=== PATIENT | male | born 1990 | race Caucasian/White ===

== ENCOUNTER 2016-09-26 17:01 | Emergency (ER) | payer OTHER ==
[2016-09-26 17:08] VITALS: BP 137/78; PULSE 70; RESP 18; TEMP 97.6
[2016-09-26] MEDS ORDERED: SODIUM CHLORIDE 0.9% 1,000 ML IV STA (17:14)
[2016-09-26] MEDS ORDERED: ONDANSETRON 4 MG/2 ML VIAL IVP STA (17:14)
[2016-09-26] MEDS ORDERED: KETOROLAC 30 MG/ML 1 ML VIAL IVP STA (17:14)
--- NOTE | 2016-09-26 17:23 | ED ---
Abdominal Pain HPI - General Chief Complaint: Abdominal Pain Stated Complaint: Abd/Side Pain Time Seen by Provider: 09/26/16 17:13 Source: patient, RN notes reviewed, old records reviewed Mode of arrival: ambulatory Limitations: no limitations - History of Present Illness Initial Comments: This is a 25-year-old male presents emergency Department chief complaint of the sudden onset of right flank pain. Patient reports he had no history of kidney stones. He reports the pain started an hour ago and he feels very nauseated. He vomited twice. Patient denies any specific abdominal pain. Patient reports that it starts from the right flank radiates towards his groin. Denies any hematuria. Patient states that he is relatively healthy denies any syncopal spell history. Denies any surgical history. Patient denies any fever or chills , diarrhea, constipation, and, shortness of breath, blood in the stools, rashes , peripheral paresthesias, headache, vision changes. - Related Data Home Medications Medication Instructions Recorded Confirmed Ibuprofen [Motrin] 200 - 400 mg PO Q6HR PRN 09/26/16 09/26/16 Naproxen Na-Diphenhydramin HCl 1 tab PO HS PRN 09/26/16 09/26/16 [Aleve Pm Caplet] Previous Rx's Medication Instructions Recorded HYDROcodone/APAP 5-325MG [Huger 1 tab PO Q6HR PRN #15 tab 09/26/16 5-325] Ketorolac [Toradol] 10 mg PO TID #15 tab 09/26/16 Ondansetron Odt [Zofran Odt] 4 mg PO Q8HR PRN #12 tab 09/26/16 Tamsulosin [Flomax] 0.4 mg PO DAILY #7 cap 09/26/16 Allergies Allergy/AdvReac Type Severity Reaction Status Date / Time No Known Allergies Allergy Verified 09/26/16 17:46 Review of Systems ROS Statement: Those systems with pertinent positive or pertinent negative responses have been documented in the HPI. ROS Other: All systems not noted in ROS Statement are negative. Past Medical History Past Medical History: No Reported History History of Any Multi-Drug Resistant Organisms: None Reported Past Surgical History: No Surgical Hx Reported Past Psychological History: No Psychological Hx Reported Smoking Status: Never smoker Past Alcohol Use History: None Reported Past Drug Use History: None Reported General Exam - General Exam Comments Initial Comments: This is a ill-appearing 25-year-old male. Patient is writhing around on the bed. Limitations: no limitations General appearance: alert Head exam: Present: atraumatic, normocephalic, normal inspection Eye exam: Present: normal appearance, PERRL, EOMI. Absent: scleral icterus, conjunctival injection, periorbital swelling ENT exam: Present: normal exam, mucous membranes moist Neck exam: Present: normal inspection. Absent: tenderness, meningismus, lymphadenopathy Respiratory exam: Present: normal lung sounds bilaterally. Absent: respiratory distress, wheezes, rales, rhonchi, stridor Cardiovascular Exam: Present: regular rate, normal rhythm, normal heart sounds. Absent: systolic murmur, diastolic murmur, rubs, gallop, clicks GI/Abdominal exam: Present: soft, tenderness (Patient has significant right flank tenderness.), normal bowel sounds. Absent: distended, guarding, rebound, rigid Extremities exam: Present: normal inspection, full ROM, normal capillary refill. Absent: tenderness, pedal edema, joint swelling, calf tenderness Back exam: Present: normal inspection Neurological exam: Present: alert, oriented X3, CN II-XII intact Psychiatric exam: Present: normal affect, normal mood Skin exam: Present: warm, dry, intact, normal color. Absent: rash Course Vital Signs 09/26/16 17:06 Temperature 97.6 F Pulse Rate 70 Respiratory 18 Rate Blood Pressure 137/78 O2 Sat by Pulse 98 Oximetry Medical Decision Making - Medical Decision Making 25-year-old male with chief complaint of intermittent right flank pain. Patient reports that we'll start the stirrup stabbing pain and will subside. Occur again. Patient reports emergency department after pain for now reports that the pain is 8/ 10. Patient given IV fluids and labs. Urine is negative for any blood or infection. Patient clinically appears to have a kidney stone due to is running around the nature of his pain. No abdominal tenderness at this time. He does have elevated white count of 16.7. CT without contrast was obtained and shows a small obstructing ureter stone in the [id number] junction. Patient will be discharged with Flomax, Toradol and discussed case with Dr. Peterson. Reviewed labs together. Patient's urine is negative for any sign of infection. At this time and think the white count is elevated due to his vomiting. Patient was discharged with Zofran as well for vomiting. Patient was reevaluated and appears to be resting comfortable. HE states that he possibly may have passed the stone at this point. - Lab Data Result diagrams: 09/26/16 17:45 09/26/16 17:45 Lab Results 09/26/16 09/26/16 09/26/16 Range/Units 17:45 17:45 17:45 WBC 16.7 H (3.8-10.6) k/uL RBC 5.09 (4.30-5.90) m/uL Hgb 14.7 (13.0-17.5) gm/dL Hct 45.4 (39.0-53.0) % MCV 89.1 (80.0-100.0) fL MCH 28.9 (25.0-35.0) pg MCHC 32.4 (31.0-37.0) g/dL RDW 13.3 (11.5-15.5) % Plt Count 331 (150-450) k/uL Neutrophils % 79 % Lymphocytes % 14 % Monocytes % 4 % Eosinophils % 2 % Basophils % 0 % Neutrophils # 13.2 H (1.3-7.7) k/uL Lymphocytes # 2.3 (1.0-4.8) k/uL Monocytes # 0.6 (0-1.0) k/uL Eosinophils # 0.3 (0-0.7) k/uL Basophils # 0.1 (0-0.2) k/uL Sodium 143 (137-145) mmol/L Potassium 4.4 (3.5-5.1) mmol/L Chloride 105 (98-107) mmol/L Carbon Dioxide 28 (22-30) mmol/L Anion Gap 10 mmol/L BUN 16 (9-20) mg/dL Creatinine 0.88 (0.66-1.25) mg/dL Est GFR (MDRD) Af Amer >60 (>60 ml/min/1.73 sqM) Est GFR (MDRD) Non-Af >60 (>60 ml/min/1.73 sqM) Glucose 88 (74-99) mg/dL Calcium 9.5 (8.4-10.2) mg/dL Total Bilirubin 0.4 (0.2-1.3) mg/dL AST 20 (17-59) U/L ALT 29 (21-72) U/L Alkaline Phosphatase 80 (38-126) U/L Total Protein 7.4 (6.3-8.2) g/dL Albumin 4.2 (3.5-5.0) g/dL Amylase 48 (30-110) U/L Lipase 98 (23-300) U/L Urine Color Yellow Urine Appearance Clear (Clear) Urine pH 6.0 (5.0-8.0) Ur Specific [place] 1.021 (1.001-1.035) Urine Protein Negative (Negative) Urine Glucose (UA) Negative (Negative) Urine Ketones Negative (Negative) Urine Blood Negative (Negative) Urine Nitrite Negative (Negative) Urine Bilirubin Negative (Negative) Urine Urobilinogen <2.0 (<2.0) mg/dL Ur Leukocyte Esterase Negative (Negative) - Radiology Data Radiology results: report reviewed Impressions is a small carcass obstructing the right upper collecting system at the ureterovesical junction. There is normal appendix. L5 spondylolysis with first-degree L5-S1 spinal listhesis. Extensive sclerotic change L2/3. Consistent with chronic discitis. Disposition Clinical Impression: Right ureteral calculus Disposition: HOME SELF-CARE Condition: Good Instructions: Kidney Stones (ED) Additional Instructions: Patient is to rest, increase fluids. Patient should follow-up with primary care provider. Return to emergency department if any other symptoms including severe fever or severe vomiting. Patient should follow-up with your primary care provider in next 2-3 days. Try to catch the stone in the urine. Complete all the prescriptions. Prescriptions: HYDROcodone/APAP 5-325MG [[place] 5-325] 1 tab PO Q6HR PRN #15 tab PRN Reason: Pain Ketorolac [Toradol] 10 mg PO TID #15 tab Ondansetron Odt [Zofran Odt] 4 mg PO Q8HR PRN #12 tab PRN Reason: Nausea Tamsulosin [Flomax] 0.4 mg PO DAILY #7 cap Referrals: None,Stated [Primary Care Provider] - 1-2 days Sulema Gooden MD [STAFF PHYSICIAN] - 1-2 days Time of Disposition: 19:15
[2016-09-26 18:10] LABS: Appearance,Urine Clear (Clear); Glucose,Urine (UA) Negative (Negative); Ketones,Urine Negative (Negative); Protein,Urine Negative (Negative); Specific Gravity,Urine 1.021 (1.001-1.035)
--- NOTE | 2016-09-26 18:10 | XR ---
EXAMINATION TYPE: XR KUB DATE OF EXAM: 09/26/2016 6:07 PM COMPARISON: NONE HISTORY: Abdominal pain TECHNIQUE: 2 views FINDINGS: Bowel gas pattern is normal. There is no sign of intestinal obstruction or pneumoperitoneum . Fecal pattern is normal. There no pathologic calcifications over the kidneys. Lung bases are clear. There is no sign of a mass. IMPRESSION: Nonacute abdomen.
[2016-09-26 18:11] LABS: Bilirubin,Urine Negative (Negative); Leukocyte Esterase,Urine Negative (Negative); Nitrite,Urine Negative (Negative); UA Billing (MACRO vs. MICRO) CHEM; Urobilinogen,Urine <2.0 mg/dL (<2.0)
[2016-09-26 18:12] LABS: Basophils # (A) 0.1 k/uL (0-0.2); Basophils % (A) 0 %; CHCM 32.8; Eosinophils # (A) 0.3 k/uL (0-0.7); Eosinophils % (A) 2 %; HCT 45.4 % (39.0-53.0); HDW 2.41; HGB 14.7 gm/dL (13.0-17.5); Luc # (Auto) 0.17; Luc % (Auto) 1; Lymphocytes # (A) 2.3 k/uL (1.0-4.8); Lymphocytes % (A) 14 %; MCH 28.9 pg (25.0-35.0); MCHC 32.4 g/dL (31.0-37.0); MCV 89.1 fL (80.0-100.0); Mean Platelet Volume 6.5; Monocytes # (A) 0.6 k/uL (0-1.0); Monocytes % (A) 4 %; Neutrophils # (A) 13.2 k/uL (1.3-7.7); Neutrophils % (A) 79 %; RBC 5.09 m/uL (4.30-5.90); RDW 13.3 % (11.5-15.5); WBC 16.7 k/uL (3.8-10.6); WBC (Perox) 16.73
[2016-09-26 18:17] LABS: ALT 29 U/L (21-72); AST 20 U/L (17-59); Alkaline Phosphatase 80 U/L (38-126); Amylase 48 U/L (30-110); Anion Gap 10 mmol/L; Blood Urea Nitrogen 16 mg/dL (9-20); Calcium 9.5 mg/dL (8.4-10.2); Carbon Dioxide 28 mmol/L (22-30); Chloride 105 mmol/L (98-107); Glucose 88 mg/dL (74-99); Non-African American GFR(MDRD) >60 (>60 ml/min/1.73 sqM); Potassium 4.4 mmol/L (3.5-5.1); Sodium 143 mmol/L (137-145); Total Bilirubin 0.4 mg/dL (0.2-1.3); Total Protein 7.4 g/dL (6.3-8.2)
--- NOTE | 2016-09-26 18:53 | CT ---
EXAMINATION TYPE: CT abdomen pelvis wo con DATE OF EXAM: 09/26/2016 6:38 PM COMPARISON: NONE HISTORY: Right side flank pain. CT DLP: 298.7 mGycm Automated exposure control for dose reduction was used. TECHNIQUE: Helical acquisition of images was performed from the lung bases through the pelvis. FINDINGS: Lung bases are clear. There is no pleural effusion. Heart size is normal. The liver spleen pancreas gallbladder appear normal. Bile ducts are not dilated. There is no adrenal mass. Kidneys have normal size and contour. There is mild right-sided hydronephrosis and hydroureter. There is a 3 mm calcification at the right ureterovesical junction. Bladder distends smoothly. There is no sign of a renal mass. There is no retroperitoneal adenopathy. I see no intestinal wall thicken ing. There are no dilated loops. There is no sign of a pelvic mass. The bony structures show bilatera l L5 spondylolysis with first-degree L5-S1 spondylolisthesis. There is moderate spondylosis at L2-3 w ith sclerosis on both sides of the disc. There is vacuum disc at L2-3.: IMPRESSION: THERE IS A SMALL CALCULUS OBSTRUCTING THE RIGHT UPPER COLLECTING SYSTEM AT THE URETEROVESICAL JUNCTIO N. NORMAL APPENDIX. L5 SPONDYLOLYSIS WITH FIRST-DEGREE L5-S1 SPONDYLOLISTHESIS. EXTENSIVE SCLEROTIC CHANGE AT L2-3 CONSISTENT WITH OLD CHRONIC DISCITIS.
== END 2016-09-26 19:28 | disposition home or self-care (01) ==
LOC: EC 17:01
DX: N20.1 Calculus of ureter (principal); R11.2 Nausea with vomiting, unspecified
CPT/HCPCS: 36415; 80053; 82150; 83690; 85025; 81003; 74000; 74176; 99285; 96374; 96375; 96361; J2405; J1885

== ENCOUNTER 2017-02-13 11:35 | Emergency (ER) | payer OTHER ==
[2017-02-13 11:38] VITALS: RESP 18; TEMP 97.3
[2017-02-13] MEDS ORDERED: SODIUM CHLORIDE 0.9% 1,000 ML IV STA (12:01)
[2017-02-13] MEDS ORDERED: HYDROmorphone 1 MG/ML 1 ML SYRINGE IVP STA (12:01)
[2017-02-13] MEDS ORDERED: METOCLOPRAMIDE 5 MG/ML 2 ML VIAL IVP STA (12:01)
--- NOTE | 2017-02-13 12:24 | ED ---
General Adult HPI - General Chief complaint: Abdominal Pain Stated complaint: POSS KIDNEY STONE Time Seen by Provider: 02/13/17 11:50 Source: patient, RN notes reviewed, old records reviewed Mode of arrival: ambulatory Limitations: no limitations - History of Present Illness Initial comments: Chief complaint history of present illness this is a 26-year-old male history of kidney stones on the right side. Reports that for the past several days been having discomfort to the right side last night he had nausea and sweats. The pain comes and goes. Previous admission to the emergency room patient a 3 mm stone was a mild hydronephrosis on the right side. Patient reports he doesn' t think he have passed that stone. - Related Data Previous Rx's Medication Instructions Recorded Hydrocodone/Acetaminophen [[place] 1 each PO Q6HR PRN #16 tab 02/13/17 5-325] Ondansetron Odt [Zofran Odt] 4 mg PO Q8HR PRN #10 tab 02/13/17 Tamsulosin [Flomax] 0.4 mg PO DAILY #14 cap 02/13/17 Allergies Allergy/AdvReac Type Severity Reaction Status Date / Time No Known Allergies Allergy Verified 02/13/17 12:19 Review of Systems ROS Statement: Those systems with pertinent positive or pertinent negative responses have been documented in the HPI. Review of systems no headache or visual acuity changes no short shortness of breath or chest pain. Discomfort to the right flank radiates down the right to the right groin area. Currently no nausea no vomiting. A dull ache. Last night it was much worse. All systems are reviewed. Past medical problems kidney stones. Surgeries none. Family history no cancers. Patient denies any ALLERGIES. Patient does not smoke denies alcohol use denies drug use. ROS Other: All systems not noted in ROS Statement are negative. Past Medical History Past Medical History: No Reported History Additional Past Medical History / Comment(s): kidney stones History of Any Multi-Drug Resistant Organisms: None Reported Past Surgical History: No Surgical Hx Reported Past Psychological History: No Psychological Hx Reported Smoking Status: Never smoker Past Alcohol Use History: None Reported Past Drug Use History: None Reported General Exam - General Exam Comments Initial Comments: General: The patient is awake and alert, complains of flank pain on the right side radiates to the right groin. When he gets really bad becomes diaphoretic and nauseated. Vital signs temperature 97.3 pulse 99 respiratory rate 18 pulse ox on percent room air blood pressure 134/96 Eye: Pupils are equal, round and reactive to light, extra-ocular movements are intact ; there is normal conjunctiva bilaterally. No signs of icterus. Ears, nose, mouth and throat: There are moist mucous membranes and no oral lesions. Neck: The neck is supple, there is no tenderness. Cardiovascular: There is a regular rate and rhythm. No murmur, rub or gallop is appreciated. Respiratory: Lungs are clear to auscultation, respirations are non-labored, breath sounds are equal. No wheezes, stridor, rales, or rhonchi. Gastrointestinal: Mild tenderness deep palpation to the right flank right upper quadrant area. Back: Right flank pain. Musculoskeletal: Normal ROM, no tenderness, There is no pedal edema. Pulses equal bilaterally 2 +. Neurological: Denies any neuro deficits. No complaint of any balance problems. Skin: Skin is warm and dry and no rashes or lesions are noted. Limitations: no limitations Course Vital Signs 02/13/17 11:36 Temperature 97.3 F L Pulse Rate 99 Respiratory 18 Rate Blood Pressure 134/96 O2 Sat by Pulse 100 Oximetry Medical Decision Making - Medical Decision Making Medical decision-making. Patient's white count 7.4 hemoglobin 15 hematocrit of 48. The patient's potassium is 5.3 BUN 14 creatinine 0.76 GFR greater than 60. Glucose 82. Urine clean no signs of infection or blood. X-ray of the abdomen was done reviewed by radiologist his impression is within the abdomen, the abdominal gas pattern is normal. As no evidence of obstruction or free air. No unusual calcifications seen. Impression; normal abdomen. As read by Dr. Zapata At this time the patient states she is feeling much better. No nausea no vomiting no pain. We discussed the lab findings an x-ray. Plan the patient will be given a strainer to use to strain the urine. Given the name of on-call physician for unassigned patients, Dr. Gooden. He will be advised increase fluid intake. Use pain medication as directed Zofran for nausea. Flomax increased urine output. Patient expresses understanding. Eyes return emergency room if he develops a fever. - Lab Data Result diagrams: 02/13/17 12:07 02/13/17 12:07 Lab Results 02/13/17 02/13/1702/13/17 Range/Units 12:07 12:07 12:07 WBC 7.4 (3.8-10.6) k/uL RBC 5.38 (4.30-5.90) m/uL Hgb 15.6 (13.0-17.5) gm/dL Hct 48.9 (39.0-53.0) % MCV 90.9 (80.0-100.0) fL MCH 29.1 (25.0-35.0) pg MCHC 32.0 (31.0-37.0) g/dL RDW 14.1 (11.5-15.5) % Plt Count 313 (150-450) k/uL Neutrophils % 54 % Lymphocytes % 34 % Monocytes % 5 % Eosinophils % 6 % Basophils % 1 % Neutrophils # 4.0 (1.3-7.7) k/uL Lymphocytes # 2.5 (1.0-4.8) k/uL Monocytes # 0.3 (0-1.0) k/uL Eosinophils # 0.4 (0-0.7) k/uL Basophils # 0.1 (0-0.2) k/uL Sodium 140 (137-145) mmol/L Potassium 5.3 H (3.5-5.1) mmol/L Chloride 103 (98-107) mmol/L Carbon Dioxide 27 (22-30) mmol/L Anion Gap 10 mmol/L BUN 14 (9-20) mg/dL Creatinine 0.76 (0.66-1.25) mg/dL Est GFR (MDRD) Af Amer >60 (>60 ml/min/1.73 sqM) Est GFR (MDRD) Non-Af >60 (>60 ml/min/1.73 sqM) Glucose 82 (74-99) mg/dL Calcium 9.7 (8.4-10.2) mg/dL Total Bilirubin 0.3 (0.2-1.3) mg/dL AST 53 (17-59) U/L ALT 72 (21-72) U/L Alkaline Phosphatase 88 (38-126) U/L Total Protein 7.4 (6.3-8.2) g/dL Albumin 4.3 (3.5-5.0) g/dL Amylase 36 (30-110) U/L Lipase 89 (23-300) U/L Urine Color Light Yellow Urine Appearance Clear (Clear) Urine pH 6.0 (5.0-8.0) Ur Specific [place] 1.013 (1.001-1.035) Urine Protein Negative (Negative) Urine Glucose (UA) Negative (Negative) Urine Ketones Negative (Negative) Urine Blood Negative (Negative) Urine Nitrite Negative (Negative) Urine Bilirubin Negative (Negative) Urine Urobilinogen <2.0 (<2.0) mg/dL Ur Leukocyte Esterase Negative (Negative) Disposition Clinical Impression: Renal colic on right side Disposition: HOME SELF-CARE Condition: Fair Instructions: Renal Colic (ED) Additional Instructions: Increase fluids. Strain the urine looking for a small stone. Follow-up with Dr. Gooden, family practitioner. If pain persists follow up with on-call urologist Dr. Chandler. Prescriptions: Hydrocodone/Acetaminophen [[place] 5-325] 1 each PO Q6HR PRN #16 tab PRN Reason: Pain Ondansetron Odt [Zofran Odt] 4 mg PO Q8HR PRN #10 tab PRN Reason: Nausea Tamsulosin [Flomax] 0.4 mg PO DAILY #14 cap Referrals: None,Stated [Primary Care Provider] - 1-2 days Time of Disposition: 13:41
[2017-02-13 12:39] LABS: Basophils # (A) 0.1 k/uL (0-0.2); Basophils % (A) 1 %; CHCM 32.1; Eosinophils # (A) 0.4 k/uL (0-0.7); Eosinophils % (A) 6 %; HCT 48.9 % (39.0-53.0); HGB 15.6 gm/dL (13.0-17.5); Luc # (Auto) 0.16; Luc % (Auto) 2; Lymphocytes # (A) 2.5 k/uL (1.0-4.8); Lymphocytes % (A) 34 %; MCH 29.1 pg (25.0-35.0); MCV 90.9 fL (80.0-100.0); Mean Platelet Volume 6.6; Monocytes # (A) 0.3 k/uL (0-1.0); Monocytes % (A) 5 %; Neutrophils % (A) 54 %; RBC 5.38 m/uL (4.30-5.90); RDW 14.1 % (11.5-15.5); WBC 7.4 k/uL (3.8-10.6); WBC (Perox) 7.12
[2017-02-13 12:40] LABS: Appearance,Urine Clear (Clear); Bilirubin,Urine Negative (Negative); Glucose,Urine (UA) Negative (Negative); Ketones,Urine Negative (Negative); Leukocyte Esterase,Urine Negative (Negative); Nitrite,Urine Negative (Negative); Protein,Urine Negative (Negative); Specific Gravity,Urine 1.013 (1.001-1.035); UA Billing (MACRO vs. MICRO) CHEM; Urobilinogen,Urine <2.0 mg/dL (<2.0)
[2017-02-13 12:54] LABS: ALT 72 U/L (21-72); AST 53 U/L (17-59); Alkaline Phosphatase 88 U/L (38-126); Amylase 36 U/L (30-110); Anion Gap 10 mmol/L; Blood Urea Nitrogen 14 mg/dL (9-20); Calcium 9.7 mg/dL (8.4-10.2); Carbon Dioxide 27 mmol/L (22-30); Chloride 103 mmol/L (98-107); Glucose 82 mg/dL (74-99); Non-African American GFR(MDRD) >60 (>60 ml/min/1.73 sqM); Potassium 5.3 mmol/L (3.5-5.1); Sodium 140 mmol/L (137-145); Total Bilirubin 0.3 mg/dL (0.2-1.3); Total Protein 7.4 g/dL (6.3-8.2)
--- NOTE | 2017-02-13 13:08 | XR ---
EXAMINATION TYPE: XR abdomen 2V , 3 VIEWS DATE OF EXAM ORDERED: 02/13/2017 HISTORY: Right flank pain, history kidney stones. COMPARISON: Previous study dated 09/26/2016. FINDINGS: The lung bases are clear. Within the abdomen, the abdominal gas pattern is normal. There is no evidence of obstruction or free air. No unusual calcifications are seen. IMPRESSION: NORMAL ABDOMEN.
[2017-02-13 14:04] VITALS: BP 122/78; PULSE 88
== END 2017-02-13 14:03 | disposition home or self-care (01) ==
LOC: EC 11:35
DX: N23 Unspecified renal colic (principal)
CPT/HCPCS: 36415; 80053; 82150; 83690; 85025; 81003; 87086; 74020; 99284; 96374; 96375; 96361; J2765; J1170

== ENCOUNTER 2023-10-30 06:54 | Emergency (ER) | payer OTHER ==
[2023-10-30 07:15] VITALS: TEMP 98
--- NOTE | 2023-10-30 07:32 | ED ---
Abdominal Pain HPI - General Chief Complaint: Abdominal Pain Stated Complaint: Abd pain, urinating blood Time Seen by Provider: 10/30/23 07:22 Source: patient Mode of arrival: ambulatory Limitations: no limitations - History of Present Illness Initial Comments: 32-year-old male presents emergency department with right-sided flank pain. States the pain started last night. He has had hematuria. He has not taken anything for the pain. He has had nausea with vomiting. He does have a history of kidney stones. No changes in his bowel habits. No other alleviating, precipitating or modifying factors - Related Data Previous Rx's Medication Instructions Recorded Hydrocodone/Acetaminophen [[place] 1 each PO Q6HR PRN #16 tab 02/13/17 5-325] Ondansetron Odt [Zofran Odt] 4 mg PO Q8HR PRN #10 tab 02/13/17 Tamsulosin [Flomax] 0.4 mg PO DAILY #14 cap 02/13/17 HYDROcodone/APAP 7.5-325MG [[place] 1 tab PO Q6HR PRN 3 Days #12 tab 10/30/23 7.5-325] Ketorolac [Toradol] 10 mg PO Q8HR #15 tab 10/30/23 Ondansetron Odt [Zofran Odt] 4 mg PO Q8HR PRN #20 tab 10/30/23 Tamsulosin [Flomax] 0.4 mg PO DAILY #7 cap 10/30/23 Allergies Allergy/AdvReac Type Severity Reaction Status Date / Time No Known Allergies Allergy Verified 10/30/23 07:15 Review of Systems ROS Statement: Those systems with pertinent positive or pertinent negative responses have been documented in the HPI. ROS Other: All systems not noted in ROS Statement are negative. Past Medical History Past Medical History: No Reported History Additional Past Medical History / Comment(s): kidney stones History of Any Multi-Drug Resistant Organisms: None Reported Past Surgical History: No Surgical Hx Reported Past Psychological History: No Psychological Hx Reported Smoking Status: Never smoker Past Alcohol Use History: None Reported Past Drug Use History: Marijuana General Exam Limitations: no limitations General appearance: alert, in distress Head exam: Present: atraumatic, normocephalic, normal inspection Eye exam: Present: normal appearance, PERRL, EOMI. Absent: scleral icterus, conjunctival injection, periorbital swelling ENT exam: Present: normal exam, mucous membranes moist Neck exam: Present: normal inspection. Absent: tenderness, meningismus, lymphadenopathy Respiratory exam: Present: normal lung sounds bilaterally. Absent: respiratory distress, wheezes, rales, rhonchi, stridor Cardiovascular Exam: Present: regular rate, normal rhythm, normal heart sounds. Absent: systolic murmur, diastolic murmur, rubs, gallop, clicks GI/Abdominal exam: Present: soft, normal bowel sounds. Absent: distended, tenderness, guarding, rebound, rigid Extremities exam: Present: normal inspection, full ROM, normal capillary refill. Absent: tenderness, pedal edema, joint swelling, calf tenderness Back exam: Present: normal inspection Neurological exam: Present: alert, oriented X3, CN II-XII intact Psychiatric exam: Present: normal affect, normal mood Skin exam: Present: warm, dry, intact, normal color. Absent: rash Course Vital Signs 10/30/23 10/30/23 07:13 11:31 Temperature 98 F Pulse Rate 63 76 Respiratory 20 18 Rate Blood Pressure 126/79 118/76 O2 Sat by Pulse 100 97 Oximetry Medical Decision Making - Medical Decision Making Was pt. sent in by a medical professional or institution (, PA, BOILER RIVETER, urgent care, hospital, or [facility]...) When possible be specific @ -No Did you speak to anyone other than the patient for history (EMS, parent, family, police, friend...)? What history was obtained from this source @ -Spoke with significant other for history Did you review nursing and triage notes (agree or disagree)? Why? @ -I reviewed and agree with nursing and triage notes Were old charts reviewed (outside hosp., previous admission, EMS record, old EKG, old radiological studies, urgent care reports/EKG's, [facility] records)? Report findings @ -No old charts were reviewed Differential Diagnosis (chest pain, altered mental status, abdominal pain women, abdominal pain men, vaginal bleeding, weakness, fever, dyspnea, syncope, headache, dizziness, GI bleed, back pain, seizure, CVA, palpatations, mental health, musculoskeletal)? @ -Differential Abdominal Pain Men: Appendicitis, cholecystitis, diverticulosis, ischemic bowel, pancreatitis, hepatitis, UTI, gastroenteritis, AAA, incarcerated hernia, bowel obstruction, constipation, inflammatory bowel, hepatitis, peptic ulcer disease, splenic infarction, perforated viscus, testicular torsion, this is not meant to be an all-inclusive list EKG interpreted by me (3pts min.). @ -Not done X-rays interpreted by me (1pt min.). @ -None done CT interpreted by me (1pt min.). @ -Yes and demonstrates a right-sided ureteral stone with moderate hydronephrosis U/S interpreted by me (1pt. min.). @ -None done What testing was considered but not performed or refused? (CT, X-rays, U/S, labs)? Why? @ -None What meds were considered but not given or refused? Why? @ -None Did you discuss the management of the patient with other professionals (professionals i.e. , PA, BOILER RIVETER, lab, RT, psych nurse, social media sr strategy manager, strategies analyst, teacher, stream control officer, upper caser)? Give summary @ -No Was smoking cessation discussed for >3mins.? @ -No Was critical care preformed (if so, how long)? @ -No Were there social determinants of health that impacted care today? How? (Homelessness, low income, unemployed, alcoholism, drug addiction, transportati on, low edu. Level, literacy, decrease access to med. care, skilled nursing, rehab)? @ -No Was there de-escalation of care discussed even if they declined (Discuss DNR or withdrawal of care, Hospice)? DNR status @ -No What co-morbidities impacted this encounter? (DM, HTN, Smoking, COPD, CAD, Cancer, CVA, ARF, Chemo, Hep., AIDS, mental health diagnosis, sleep apnea, morbid obesity)? @ -None Was patient admitted / discharged? Hospital course, mention meds given and route, prescriptions, significant lab abnormalities, going to OR and other pertinent info. @ -Upon arrival patient seen and evaluated in room 6. Thorough history and physical exam was performed. IV access was established. Patient given pain medications. CT was performed which demonstrates a ureteral stone on the right. Patient's pain is controlled at this time. He will be discharged home on pain medications and Flomax. Encouraged to drink plenty of fluids in order to urinate. Strain all urine. Follow-up with his primary care doctor and return for any new or worsening symptoms Undiagnosed new problem with uncertain prognosis? @ -No Drug Therapy requiring intensive monitoring for toxicity (Heparin, Nitro, Insulin, Cardizem)? @ -No Were any procedures done? @ -No Diagnosis/symptom? @ -Acute hematuria, acute right-sided flank pain, acute ureteral stone Acute, or Chronic, or Acute on Chronic? @ -Acute Uncomplicated (without systemic symptoms) or Complicated (systemic symptoms)? @ -Complicated Side effects of treatment? @ -No Exacerbation, Progression, or Severe Exacerbation? @ -No Poses a threat to life or bodily function? How? (Chest pain, USA, ME, pneumonia, PE, COPD, DKA, ARF, appy, cholecystitis, CVA, Diverticulitis, Homicidal, Suicidal, threat to staff... and all critical care pts) @ -No - Lab Data Result diagrams: 10/30/23 07:52 10/30/23 07:52 Lab Results 10/30/23 10/30/23 10/30/23 Range/Units 07:52 07:52 07:52 WBC 16.3 H (3.8-10.6) k/uL RBC 5.87 (4.30-5.90) m/uL Hgb 16.8 (13.0-17.5) gm/dL Hct 51.4 (39.0-53.0) % MCV 87.5 (80.0-100.0) fL MCH 28.5 (25.0-35.0) pg MCHC 32.6 (31.0-37.0) g/dL RDW 13.2 (11.5-15.5) % Plt Count 370 (150-450) k/uL MPV 7.5 Neutrophils % 86 % Lymphocytes % 10 % Monocytes % 3 % Eosinophils % 1 % Basophils % 0 % Neutrophils # 13.9 H (1.3-7.7) k/uL Lymphocytes # 1.6 (1.0-4.8) k/uL Monocytes # 0.5 (0-1.0) k/uL Eosinophils # 0.1 (0-0.7) k/uL Basophils # 0.0 (0-0.2) k/uL Sodium 140 (137-145) mmol/L Potassium 3.9 (3.5-5.1) mmol/L Chloride 107 (98-107) mmol/L Carbon Dioxide 23 (22-30) mmol/L Anion Gap 10 mmol/L BUN 16 (9-20) mg/dL Creatinine 0.90 (0.66-1.25) mg/dL Est GFR (CKD-EPI)AfAm >90 (>60 ml/min/1.73 sqM) Est GFR (CKD-EPI)NonAf >90 (>60 ml/min/1.73 sqM) Glucose 135 H (74-99) mg/dL Calcium 10.0 (8.4-10.2) mg/dL Total Bilirubin 0.9 (0.2-1.3) mg/dL AST 28 (17-59) U/L ALT 24 (4-49) U/L Alkaline Phosphatase 120 (38-126) U/L Total Protein 7.9 (6.3-8.2) g/dL Albumin 4.8 (3.5-5.0) g/dL Lipase 95 (23-300) U/L Urine Color Yellow Urine Appearance Clear (Clear) Urine pH 7.5 (5.0-8.0) Ur Specific Campbell 1.025 (1.001-1.035) Urine Protein Trace H (Negative) Urine Glucose (UA) Negative (Negative) Urine Ketones 2+ H (Negative) Urine Blood Large H (Negative) Urine Nitrite Negative (Negative) Urine Bilirubin Negative (Negative) Urine Urobilinogen <2.0 (<2.0) mg/dL Ur Leukocyte Esterase Negative (Negative) Urine RBC >182 H (0-5) /hpf Urine WBC 2 (0-5) /hpf Urine Mucus Rare H (None) /hpf Serum Alcohol <10 mg/dL Disposition Clinical Impression: Ureteral stone with hydronephrosis, Flank pain, Hematuria Disposition: HOME SELF-CARE Condition: Stable Instructions (If sedation given, give patient instructions): Kidney Stones (ED) Additional Instructions: Please alternate taking the Toradol with the [place] every 3 hours. Use the Zofran as needed for nausea. Strain all of your urine. Drink fluids to encourage urination. Return to the emergency department should you have uncontrolled pain, fever or inability to urinate. Prescriptions: Tamsulosin [Flomax] 0.4 mg PO DAILY #7 cap HYDROcodone/APAP 7.5-325MG [[place] 7.5-325] 1 tab PO Q6HR PRN 3 Days #12 tab PRN Reason: Pain Ketorolac [Toradol] 10 mg PO Q8HR #15 tab Ondansetron Odt [Zofran Odt] 4 mg PO Q8HR PRN #20 tab PRN Reason: Nausea Is patient prescribed a controlled substance at d/c from ED?: Yes When asked, does pt state using other controlled substances?: No If prescribed controlled substance>3 days was MAPS reviewed?: Prescribed <3 Days If opioid is for acute pain is fill amount 7 days or less?: Yes Referrals: None,Stated [Primary Care Provider] - 1-2 days Time of Disposition: 11:14
[2023-10-30] MEDS: SODIUM CHLORIDE 0.9% 2,000 ML IV STA (07:44)
[2023-10-30] MEDS: HYDROmorphone 1 MG/ML 1 ML SYRINGE IVP STA ×2 (07:45→10:13)
[2023-10-30] MEDS: KETOROLAC 15 MG/ML 1 ML VIAL IVP STA (07:50)
[2023-10-30 08:02] LABS: Basophils % (A) 0 %; Eosinophils # (A) 0.1 k/uL (0-0.7); Eosinophils % (A) 1 %; HCT 51.4 % (39.0-53.0); HGB 16.8 gm/dL (13.0-17.5); Lymphocytes # (A) 1.6 k/uL (1.0-4.8); Lymphocytes % (A) 10 %; MCH 28.5 pg (25.0-35.0); MCHC 32.6 g/dL (31.0-37.0); MCV 87.5 fL (80.0-100.0); Mean Platelet Volume 7.5; Monocytes # (A) 0.5 k/uL (0-1.0); Monocytes % (A) 3 %; Neutrophils # (A) 13.9 k/uL (1.3-7.7); Neutrophils % (A) 86 %; Platelet Count 370 k/uL (150-450); RBC 5.87 m/uL (4.30-5.90); RDW 13.2 % (11.5-15.5); WBC 16.3 k/uL (3.8-10.6)
[2023-10-30 08:12] LABS: ALT 24 U/L (4-49); AST 28 U/L (17-59); African American GFR (CKD) >90 (>60 ml/min/1.73 sqM); Albumin 4.8 g/dL (3.5-5.0); Alcohol <10 mg/dL; Alkaline Phosphatase 120 U/L (38-126); Anion Gap 10 mmol/L; Blood Urea Nitrogen 16 mg/dL (9-20); Carbon Dioxide 23 mmol/L (22-30); Chloride 107 mmol/L (98-107); Glucose 135 mg/dL (74-99); Lipase 95 U/L (23-300); Non-African American GFR(CKD) >90 (>60 ml/min/1.73 sqM); Potassium 3.9 mmol/L (3.5-5.1); Sodium 140 mmol/L (137-145); Total Bilirubin 0.9 mg/dL (0.2-1.3); Total Protein 7.9 g/dL (6.3-8.2)
--- NOTE | 2023-10-30 09:32 | CT ---
EXAMINATION TYPE: CT abdomen pelvis wo con CT DLP: 522.8 mGycm, Automated exposure control for dose reduction was used. DATE OF EXAM: 10/30/2023 8:03 AM COMPARISON: CT 2017 CLINICAL INDICATION:Male, 32 years old with history of abdominal pain right sided; RLQ pain, nausea, vomiting TECHNIQUE: Axial CT of the abdomen and pelvis. Sagittal and coronal reformats were created on a [employer] workstation. Contrast used: mL of , (none if empty) Oral contrast used: without Oral Contrast (none if empty) FINDINGS: LOWER CHEST: Unremarkable ABDOMEN LIVER: Unremarkable GALLBLADDER AND BILE DUCTS: Unremarkable gallbladder. No biliary ductal dilatation. PANCREAS: Unremarkable. SPLEEN: Unremarkable. ADRENAL GLANDS: Unremarkable. KIDNEYS AND URETERS: No visible intrarenal calculi. On the right, there is moderate hydroureteronephr osis which appears secondary to a 4 mm calculus in the distal ureter just before the ureterovesical j unction. No left ureteral calculi or hydronephrosis seen. PELVIS BLADDER: Unremarkable REPRODUCTIVE: Unremarkable. ABDOMEN & PELVIS STOMACH AND BOWEL: Small hiatal hernia. Stomach and small bowel are nondistended, no evidence of obst ruction. The appendix appears within normal limits. There is some stool and gas seen throughout th e colon with no focal acute abnormality shown. Colonic diverticula are present which do not appear inflamed. PERITONEUM/RETROPERITONEUM: No evidence of pneumoperitoneum or free fluid. VASCULATURE: Aorta and major branches are grossly unremarkable. No AAA. LYMPH NODES: No enlarged nodes by CT size criteria. SOFT TISSUE/ABDOMINAL WALL: Unremarkable MUSCULOSKELETAL: No acute osseous abnormalities. Multilevel degenerative disc changes in the visualiz ed spine. Chronic bilateral L5 pars defects with moderate to severe endplate changes/irregularities a nd sclerosis with grade 2 approaching grade 3 anterolisthesis L5 on S1 measuring roughly 12 mm. Unroo fing of the intervertebral disc at this level with disc deformity and bulging causing severe bilatera l neural foraminal stenoses. Small sclerotic densities in the pelvis/hips likely bone islands. No pau tructive lesion is seen. IMPRESSION: 1. Moderate right-sided hydroureteronephrosis, secondary to a 4 mm calculus in the distal right uret er. 2. Chronic spinal changes, with findings at L5-S1 resulting in severe bilateral neuroforaminal steno ses. Correlate for any symptoms. 3. Other chronic and likely incidental findings, as described above.
[2023-10-30 10:09] LABS: Appearance,Urine Clear (Clear); Bilirubin,Urine Negative (Negative); Blood,Urine Large (Negative); Color,Urine Yellow; Glucose,Urine (UA) Negative (Negative); Ketones,Urine 2+ (Negative); Leukocyte Esterase,Urine Negative (Negative); Mucus,Urine Rare /hpf; Nitrite,Urine Negative (Negative); PH, Urine 7.5 (5.0-8.0); Protein,Urine Trace (Negative); RBC,Urine >182 /hpf (0-5); Specific Gravity,Urine 1.025 (1.001-1.035); Urobilinogen,Urine <2.0 mg/dL (<2.0); WBC,Urine 2 /hpf (0-5)
[2023-10-30] MEDS: ONDANSETRON 4 MG/2 ML VIAL IVP STA (10:13)
[2023-10-30] MEDS: TAMSULOSIN 0.4 MG CAP.ER.24H PO STA (11:27)
[2023-10-30 11:33] VITALS: BP 118/76; PULSE 76; RESP 18
== END 2023-10-30 11:33 | disposition home or self-care (01) ==
LOC: EC 06:54
DX: N13.2 Hydronephrosis with renal and ureteral calculous obstruction (principal); F12.90 Cannabis use, unspecified, uncomplicated
CPT/HCPCS: 36415; 80053; 83690; 85025; 81001; 80320; 74176; 99284; 96374; 96375 ×2; 96376; 96361 ×2; J2405; J1170; J1885